=== PATIENT | male | born 1955 | race Caucasian/White ===

== ENCOUNTER → 2021-06-19 | Outpatient (CLI) | payer MEDICARE ==
[2021-06-19 16:59] LABS: Campylobacter Sp Not Detected (NOT DETECT)
[2021-06-19 17:00] LABS: Adenovirus F 40/41 Not Detected (NOT DETECT); Astrovirus Not Detected (NOT DETECT); Cryptosporidium Not Detected (NOT DETECT); Cyclospora Cayetanensis Not Detected (NOT DETECT); E. Coli O157 Not Detected (NOT DETECT); Entamoeba Histolytica Not Detected (NOT DETECT); Enteroaggregative E. coli-EAEC Not Detected (NOT DETECT); Enteropathogenic E. coli-EPEC Not Detected (NOT DETECT); Enterotoxigenic E. coli-ETEC Not Detected (NOT DETECT); Giardia Lamblia Not Detected (NOT DETECT); Norovirus GI/GII Not Detected (NOT DETECT); Plesiomonas Shigelloides Not Detected (NOT DETECT); Rotavirus A Not Detected (NOT DETECT); Salmonella Sp Not Detected (NOT DETECT); Sapovirus Not Detected (NOT DETECT); Shiga Toxin-prod E. coli-STEC Not Detected (NOT DETECT); Shigella/Enteroin E. coli-EIEC Not Detected (NOT DETECT); Vibrio Cholerae Not Detected (NOT DETECT); Vibrio Sp Not Detected (NOT DETECT); Yersinia Enterocolitica Not Detected (NOT DETECT)
== END | disposition home or self-care (01) ==
LOC: LAB 11:26 → LAB SHORT 11:26
PROVIDERS: Nurse Practitioner Family
DX: R00.0 Tachycardia, unspecified (principal); R03.1 Nonspecific low blood-pressure reading; R79.9 Abnormal finding of blood chemistry, unspecified; R19.7 Diarrhea, unspecified
CPT/HCPCS: 0097U

== ENCOUNTER → 2021-07-21 | Outpatient (CLI) | payer MEDICARE | LOC: LAB SHORT 07:29 → LAB 07:29 | DX: D48.5 Neoplasm of uncertain behavior of skin (principal); D22.4 Melanocytic nevi of scalp and neck | CPT/HCPCS: 88305 ==

== ENCOUNTER → 2022-05-25 | Outpatient (CLI) | payer MEDICARE | END | disposition home or self-care (01) | LOC: LAB 12:05 → PLD 12:05 → LAB SHORT 12:05 | DX: C44.329 Squamous cell carcinoma of skin of other parts of face (principal); L57.0 Actinic keratosis | CPT/HCPCS: 88305 ==

== ENCOUNTER → 2022-12-22 | Outpatient (CLI) | payer OTHER | END | disposition home or self-care (01) | LOC: LAB 12:07 → LAB SHORT 12:07 | DX: D48.5 Neoplasm of uncertain behavior of skin (principal) | CPT/HCPCS: 88305 ==

== ENCOUNTER → 2023-03-22 | Outpatient (CLI) | payer OTHER | LOC: PLD 13:14 → LAB SHORT 13:14 | DX: D48.5 Neoplasm of uncertain behavior of skin (principal) | CPT/HCPCS: 88305 ==

== ENCOUNTER 2024-05-21 13:12 | Inpatient (IN) | payer OTHER ==
[~2024-05-21] VITALS: Ht 175.3 cm; Wt 108.6 kg
[2024-05-21] VITALS (14 sets, daily range): BP systolic 111–194; BP diastolic 72–138
[2024-05-21 13:58] LABS: BASOPHILS PERCENT AUTO 1 % (0-2); EOSINOPHILS ABSOLUTE AUTO 0.13 K/mm3 (0.00-0.68); EOSINOPHILS PERCENT AUTO 1 % (0-6); Hematocrit 51.6 % (37.0-53.0); Hemoglobin 17.2 g/dL (13.5-17.5); IMMATURE GRAN ABSOLUTE AUTO 0.03 K/mm3 (0.00-0.10); IMMATURE GRAN PERCENT AUTO 0 % (0-1); LYMPHOCYTES ABSOLUTE AUTO 1.77 K/mm3 (0.84-5.20); LYMPHOCYTES PERCENT AUTO 17 % (21-46); MONOCYTES ABSOLUTE AUTO 0.75 K/mm3 (0.16-1.47); MONOCYTES PERCENT AUTO 7 % (4-13); Mean Corpuscular HGB 31.7 pg (26.0-34.0); Mean Corpuscular HGB Conc 33.3 g/dL (31.5-36.5); Mean Corpuscular Volume 95 fL (80-100); Mean Platelet Volume 11.7 fL (9.1-12.4); NEUTROPHILS PERCENT AUTO 73 % (41-73); Platelet Count 165 K/mm3 (150-400); RDW Coefficient Variation 13.8 % (11.7-14.2); RDW Standard Deviation 48.4 fL (35.1-46.3); Red Blood Cell Count 5.42 M/mm3 (4.30-5.90); White Blood Cell Count 10.48 K/mm3 (4.00-11.30)
[2024-05-21] MEDS ORDERED: Metoprolol Tartrate 1 MG/ML 5 ML VIAL IV ONE ×2 (14:10→15:10)
[2024-05-21 14:23] LABS: Albumin, Blood 3.7 g/dL (3.4-5.0); Albumin/Globulin Ratio 0.9 (0.8-1.8); Bilirubin, Total 1.1 mg/dL (0.1-1.0); Bun/Creatinine Ratio 18.1 (12.0-20.0); Calcium, Blood 9.2 mg/dL (8.5-10.1); Creatinine, Blood 1.27 mg/dL (0.60-1.20); Globulin, Blood 4.2 g/dL (2.2-4.0); Potassium, Blood 3.8 mmol/L (3.5-5.5); Total Protein, Blood 7.9 g/dL (6.4-8.2)
[2024-05-21] MEDS ORDERED: Diltiazem HCl 5 MG / ML 5ML Vial IV ONE ×2 (16:05→16:40)
[2024-05-21] MEDS ORDERED: dilTIAZem HCL 100 MG in NS 100 ML IV SCH (17:40)
[2024-05-21] MEDS ORDERED: Ondansetron HCl 2 MG / ML 2ML Vial IV PRN (18:35)
[2024-05-21] MEDS ORDERED: Acetaminophen 325 MG TABLET PO PRN (18:35)
[2024-05-21] MEDS ORDERED: Furosemide 10 MG / ML 2ML Vial IV ONE (19:00)
[2024-05-21] MEDS ORDERED: Metoprolol Tartrate 50 MG Tab PO SCH (19:00)
[2024-05-21] MEDS ORDERED: Potassium Chloride 20 MEQ TabCR PO ONE (19:00)
--- NOTE | 2024-05-21 20:24 | NUR ---
ADMISSION PATIENT ARRIVED TO PCU 18 AT 1999 VIA STRETCHER. PATIENT IS ALERT AND ORIENTED X4. ABLE TO SELF TRANSFER TO THE BED. PLACED IN HOSPITAL GOWN. UPON ADMIT PATIENT ON CARDIZEM DRIP AT 15 AND HEART RATE 140'S-160'S. PATIENT DENIES ANY CHEST PAIN, SHORTNESS OF BREATH, LIGHT HEADEDNESS, AND DIZZINESS. WILL CONTINUE TO MONITOR. CALL LIGHT WITHIN REACH.
[2024-05-22] VITALS (18 sets, daily range): BP systolic 103–138; BP diastolic 63–111
--- NOTE | 2024-05-22 06:34 | NUR ---
SHIFT SUMMARY PATIENT CONTINUES ON CARDIZEM DRIP AT 15, HEART RATE HAS TRENDED DOWN TO 110'S-120'S. PATIENT CONTINUES TO DENY ANY CHEST PAIN, SHORTNESS OF BREATH, AND DIZZINESS. ON ROOM AIR WITH SPO2 >90%. NO ACUTE ISSUES NOTED OVERNIGHT. WILL CONTINUE TO MONITOR. CALL LIGHT WITHIN REACH.
[2024-05-22] MEDS ORDERED: Lopressor 50 mg50 MG PO (07:26)
[2024-05-22] MEDS ORDERED: METO50ER PO (07:26)
[2024-05-22] MEDS ORDERED: XARELTO20 MG PO (07:27)
[2024-05-22] MEDS ORDERED: JARDIANCE10 MG PO (07:27)
[2024-05-22] MEDS ORDERED: FURO20 PO (07:30)
[2024-05-22] MEDS ORDERED: POTA10T PO (07:30)
[2024-05-22] MEDS ORDERED: ZOLP10 PO (07:30)
[2024-05-22] MEDS ORDERED: Insulin Human Lispro 100 Units/ML 3ML Syringe SC SCH (07:30)
[2024-05-22] MEDS ORDERED: HYDRA50 PO (07:31)
[2024-05-22] MEDS ORDERED: ALLO300 PO (07:38)
--- NOTE | 2024-05-22 07:41 | NUR ---
REVIEWED pt's home medications with him, based on medication claim hx from [facility] as well as pt's report. Unusual directions on Toprol XL and metoprolol tartrate, which the pt takes both. Pt's vital signs taken. Remains afib with RVR rate 115-130 bpm, asymptomatic at rest, reports ShOB with activity.
[2024-05-22 08:46] LABS: BASOPHILS ABSOLUTE AUTO 0.07 K/mm3 (0.00-0.23); BASOPHILS PERCENT AUTO 1 % (0-2); EOSINOPHILS PERCENT AUTO 1 % (0-6); Hematocrit 51.8 % (37.0-53.0); Hemoglobin 17.3 g/dL (13.5-17.5); IMMATURE GRAN ABSOLUTE AUTO 0.03 K/mm3 (0.00-0.10); IMMATURE GRAN PERCENT AUTO 0 % (0-1); LYMPHOCYTES ABSOLUTE AUTO 1.51 K/mm3 (0.84-5.20); LYMPHOCYTES PERCENT AUTO 12 % (21-46); MONOCYTES ABSOLUTE AUTO 0.89 K/mm3 (0.16-1.47); MONOCYTES PERCENT AUTO 7 % (4-13); Mean Corpuscular HGB Conc 33.4 g/dL (31.5-36.5); Mean Corpuscular Volume 96 fL (80-100); Mean Platelet Volume 11.7 fL (9.1-12.4); NEUTROPHILS ABSOLUTE AUTO 10.11 K/mm3 (1.96-9.15); NEUTROPHILS PERCENT AUTO 80 % (41-73); Platelet Count 154 K/mm3 (150-400); RDW Coefficient Variation 13.8 % (11.7-14.2); RDW Standard Deviation 49.2 fL (35.1-46.3); White Blood Cell Count 12.71 K/mm3 (4.00-11.30)
[2024-05-22] MEDS ORDERED: Rivaroxaban 10 MG Tab PO SCH (09:00)
[2024-05-22 09:03] LABS: Bun/Creatinine Ratio 18.5 (12.0-20.0); Creatinine, Blood 1.08 mg/dL (0.60-1.20); Magnesium, Blood 1.7 mg/dL (1.6-2.4); Potassium, Blood 4.3 mmol/L (3.5-5.5)
--- NOTE | 2024-05-22 09:40 | NUR ---
Afib 155-180, denies chest discomfort/ShOB/pain. Dr. Varela here rounding. Expect cardiology consultation.
--- NOTE | 2024-05-22 12:26 | NUR ---
Cardizem gtt stopped, amiodarone bolus given and amiodarone gtt started. Pt was also given tylenol for c/o headache 02/21. He is sitting up in bed, eating lunch. Vital signs are improved.
[2024-05-22] MEDS ORDERED: Metoprolol Succinate 50 MG TABCR PO SCH (15:20)
--- NOTE | 2024-05-22 15:47 | NUR ---
Call to Dr. Varela at 1520 for atrial fib rate sustaining 130-160 bpm. Pt is asymptomatic, systolic blood pressure 123. Denies any dyspnea, pain, shortness of breath at rest and with use of urinal. New order received to give Toprol XL starting now. Amiodarone gtt was started at approx noon, but heart rate has not responded to it. Monitoring closely.
--- NOTE | 2024-05-22 18:03 | NUR ---
Call to Dr. Varela, updated her on pt's slightly improved heart rate, but still afib with RVR 120-130s primarily. No new orders. Continue amiodarone gtt as ordered; pt got 200 mg Toprol XL already this afternoon. He remains asymptomatic.
[2024-05-22] MEDS ORDERED: Zolpidem Tartrate 10 MG Tab PO PRN (20:00)
[2024-05-23 03:57] LABS: BASOPHILS ABSOLUTE AUTO 0.07 K/mm3 (0.00-0.23); BASOPHILS PERCENT AUTO 1 % (0-2); EOSINOPHILS ABSOLUTE AUTO 0.23 K/mm3 (0.00-0.68); EOSINOPHILS PERCENT AUTO 2 % (0-6); Hematocrit 49.4 % (37.0-53.0); Hemoglobin 16.7 g/dL (13.5-17.5); IMMATURE GRAN ABSOLUTE AUTO 0.03 K/mm3 (0.00-0.10); IMMATURE GRAN PERCENT AUTO 0 % (0-1); LYMPHOCYTES ABSOLUTE AUTO 1.92 K/mm3 (0.84-5.20); LYMPHOCYTES PERCENT AUTO 17 % (21-46); MONOCYTES PERCENT AUTO 9 % (4-13); Mean Corpuscular HGB 32.3 pg (26.0-34.0); Mean Corpuscular HGB Conc 33.8 g/dL (31.5-36.5); Mean Corpuscular Volume 96 fL (80-100); Mean Platelet Volume 11.5 fL (9.1-12.4); NEUTROPHILS ABSOLUTE AUTO 8.29 K/mm3 (1.96-9.15); NEUTROPHILS PERCENT AUTO 72 % (41-73); Platelet Count 171 K/mm3 (150-400); RDW Coefficient Variation 13.7 % (11.7-14.2); RDW Standard Deviation 48.2 fL (35.1-46.3); Red Blood Cell Count 5.17 M/mm3 (4.30-5.90); White Blood Cell Count 11.54 K/mm3 (4.00-11.30)
[2024-05-23 04:20] LABS: Bun/Creatinine Ratio 18.6 (12.0-20.0); Calcium, Blood 9.1 mg/dL (8.5-10.1); Creatinine, Blood 1.13 mg/dL (0.60-1.20); Potassium, Blood 3.8 mmol/L (3.5-5.5)
[2024-05-23 04:25] VITALS: BP 126/105
--- NOTE | 2024-05-23 06:37 | NUR ---
SHIFT SUMMARY PATIENT ALERT AND ORIENTED X4. HAD NO COMPLAINTS OF PAIN OR SHORTNESS OF BREATH. ON ROOM AIR WITH SPO2 >90%. CONTINUES ON AMIODARONE DRIP WITH HEART RATE 120'S AT REST/SLEEPING, TOUCHED THE 170'S WITH ACTIVITY. PATIENT ASYMPTOMATIC. WILL CONTINUE TO MONITOR. CALL LIGHT WITHIN REACH.
[2024-05-23 07:33] VITALS: BP 121/95
[2024-05-23] MEDS ORDERED: Furosemide 10 MG/ML 4ML Vial IV SCH (09:00)
[2024-05-23] MEDS ORDERED: Metoprolol Succinate 50 MG TABCR PO SCH (09:00)
--- NOTE | 2024-05-23 09:28 | NUR ---
AM NOTES; PT ALERT AND ORIETNTED X4, PT ABLE TO AMBULATE TO THE BATHROOM WITH MILD SOB, HRR STILL GOING UP TO THE 160'S, SBP 120'S, SATS ABOVE 95% ON RA, AFEBRILE, DENIES CHEST PAIN/PRESSURE. DR SIDDIQI CONSULTED SIGNALS INTELLIGENCE ANALYST AWAITING FOR DR OLMOS TO ROUNDS PLAN ON DOING CARDIOVERSION. PT HAD BREAKFAST, KPT NPO FROM NOW ON. AMIO GTT STILL INFUSING. PT HAS BEEN PLEASANT AND COOPERATIVE WITH CARES, ABLE TO MAKE NEEDS KNOWN. WILL CONTINUE TO MONITOR
[2024-05-23 11:13] VITALS: BP 124/104
--- NOTE | 2024-05-23 11:20 | NUR ---
UPDATE; DR OLMOS CAME BY PLAN TO DO CARDIOVERSION IN AM, TO KEEP PT KNPO AFTER MIDNIGHT. TO CONTINUE AMIO GTT PER ORDER. PT NOW UP SITTING IN THE RECLINER FOR LUNCH HRR STILL 130-160'S. PT ASYMPTOMATIC. WILL CONTINUE TO MONITOR
[2024-05-23 16:15] VITALS: BP 112/73
[2024-05-23] MEDS ORDERED: Insulin Human Lispro 100 Units/ML 3ML Syringe SC SCH (18:00)
--- NOTE | 2024-05-23 18:13 | NUR ---
PT SUMMARY; NO OTHER ISSUES ENCOUNTERED FOR THE SHIFT. VITALS REMAINED THE SAME HRR STILL 130-150'S, PLAN FOR CARDIOVERSION IN AM PT TO BE TAKEN TO WATER POLLUTION SPECIALIST AT 0630A. NPO AFTER MIDNIGHT. PT HAS BEEN PLEASANT AND COOPERATIVE FOR THE SHIFT, AMBULATES TO THE BATHROOM WAS UP IN THE RECLINER FOR MEALS. WILL REPORT TO ONCOMING SHIFT
[2024-05-23 20:49] VITALS: BP 136/109
[2024-05-23 23:41] VITALS: BP 123/84
[2024-05-24] VITALS (8 sets, daily range): BP systolic 107–153; BP diastolic 89–102
--- NOTE | 2024-05-24 06:40 | NUR ---
SHIFT SUMMARY PATIENT ALERT AND ORINETED X4. HAD NO COMPLAINTS OF PAIN OR SHORTNESS OF BREATH. ON ROOM AIR WITH SPO2 >90% CONTINUES ON AMIODARONE DRIP, AFIB IN THE 130'S-150'S ON TELE. PLAN FOR WONG AND CARDIOVERSION THIS MORNING. BLOOD PRESSURE STABLE. NO ACUTE ISSUES NOTED OVERNIGHT. WILL CONTINUE TO MONITOR. CALL LIGHT WITHIN REACH.
[2024-05-24] MEDS ORDERED: NS 1,000 ML IV ONE (06:43)
[2024-05-24] MEDS ORDERED: propofoL 20 ML IV ONE (06:53)
--- NOTE | 2024-05-24 07:28 | NUR ---
CARE ASSUMPTION THIS RN ASSUMING CARE OF PT. PT ALREADY GONE TO HEART CENTER FOR CARDIOVERSION PRIOR TO DAY SHIFT ARRIVAL. PT SPOUSE WAITING IN PT RM, INTRODUCTION MADE TO PT SPOUSE. WILL AWAIT PT RETURN TO UNIT.
--- NOTE | 2024-05-24 07:50 | NUR ---
PT AWAKE AND CONVERSING APPROPRIATELY; DENIES PAIN POST PROCEDURE, VSS. REPORT CALLED TO MARY ALICE HERNÁNDEZ, ALL QUESTIONS ANSWERED. PT RETURNED TO ROOM VIA W/C, CONDITION STABLE.
--- NOTE | 2024-05-24 08:30 | NUR ---
RETURN FROM PROCEDURE PT BROUGHT BACK TO PCU-18 BY WHEELCHAIR FROM HEART CENTER @ APPROX 0750. PT A&O X4, ABLE TO STAND & TRANSFER TO BED W/ SBA. VSS. SPO2 > 92% ON RA. MONITOR SHOWING SR W/ PACs, HR 80s. AMIO GTT STILL INFUSING UPON RETURN. THEN W/ ORDER TO DC AMIO GTT AND START PO AMIO. PT REFUSING LASIX THIS AM, STATING, "I'M UP EVERY 20 MINUTES PEEING. I JUST NEED A BREAK." URINAL OFFERED AT BEDSIDE & PT REMINDED OF PURPOSE OF LASIX. PT STILL REFUSING, STATING "I NEED A DAY OFF. I'LL TAKE IT WHEN I GET HOME IF I GO HOME LATER TODAY." PT ALSO ENCOURAGING PT TO TAKE MEDICATION BUT PT POLITELY DECLINING.
[2024-05-24] MEDS ORDERED: Amiodarone HCl 200 MG Tab PO SCH (09:00)
[2024-05-24] MEDS ORDERED: Metoprolol Tartrate 1 MG/ML 5 ML VIAL IV PRN (12:00)
[2024-05-24] MEDS ORDERED: Metoprolol Tartrate 1 MG/ML 5 ML VIAL IV ONE (12:00)
--- NOTE | 2024-05-24 12:00 | NUR ---
CONVERT FROM SR TO AFIB AT 1142 PT CONVERTED BACK TO AFIB, HR 110s-130s W/ BRIEF INCREASE TO 150s. PT DENYING SYMPTOMS OR AWARE OF ANY CHANGES. VSS. CALL TO MD NEERU Cuellar/ ORDER FOR IV LOPRESSOR & TO NOTIFY MD OLMOS. CALL TO MD AMARILIS Cuellar/ ORDERS FOR IV DIGOXIN X3 DOSES 6 HRS APART & START PO DIGOXIN DAILY STARTING 7/12 AM (SEE ORDERS).
[2024-05-24] MEDS ORDERED: Digoxin 0.25 MG/ML 2ML Amp IV SCH (12:10)
--- NOTE | 2024-05-24 17:36 | NUR ---
END OF SHIFT PT A&O X4. VSS. SPO2 > 92% ON RA. PT IN SR UPON CARE ASSUMPTION AFTER CARDIOVERSION THIS AM, THEN CONVERTED BACK INTO AFIB @ APPROX 1140 THIS AM, SEE PREVIOUS NOTE. PT REMAINS AFIB, HR 110s-140s. PT DENIES FEELING ANY CHANGE W/ CONVERTING BACK INTO AFIB.
--- NOTE | 2024-05-24 19:35 | NUR ---
ASSUMED CARE OF PATIENT. PATIENT RESTING BED AT THIS TIME. PATIETN ON TELE MOPNITOIR HR 110S-130S. NO COMPLAINTS OF LIGHT HEADEDNESS OR SOB. PATIENT ON RA. INDEPENDENT IN THE ROOM.
[2024-05-25 04:07] VITALS: BP 119/102
[2024-05-25 07:20] VITALS: BP 132/94
[2024-05-25] MEDS ORDERED: Digoxin 0.25 MG Tab PO SCH (09:00)
[2024-05-25] MEDS ORDERED: AMIODARONE HCL400 M2 PO (10:17)
[2024-05-25] MEDS ORDERED: DIGOX250 MCG PO (10:17)
--- NOTE | 2024-05-25 11:41 | NUR ---
DISCHARGE HOME PT A&O X4. VSS. SPO2 > 92% ON RA. MONITOR SHOWING AFIB, HR 100-130s. MD OLMOS W/ CHHAYA FOR PT DISCHARGE & REFERRING PT FOR ABLATION. MD SIDDIQI W/ ORDER FOR DISCHARGE. DISCHARGE INSTRUCTIONS REVIEWED W/ PT. PIVs REMOVED. PT TAKEN OUT BY WHEELCHAIR W/ BELONGINGS @ 7053.
== END 2024-05-25 11:40 | disposition home or self-care (01) | DRG 308 ==
LOC: ER 13:12 → PCU 13:13
PROVIDERS: Family Medicine; Student in an Organized Health Care Education/Training Program; ADMIT Internal Medicine
PROC: 5A2204Z Restoration of Cardiac Rhythm, Single (ICD-10-PCS; principal; 2024-05-24)
DX: I48.19 Other persistent atrial fibrillation (principal); I50.33 Acute on chronic diastolic (congestive) heart failure; E78.5 Hyperlipidemia, unspecified; E11.9 Type 2 diabetes mellitus without complications; D72.829 Elevated white blood cell count, unspecified; I95.9 Hypotension, unspecified; I49.1 Atrial premature depolarization; I11.0 Hypertensive heart disease with heart failure; M10.9 Gout, unspecified; Z79.899 Other long term (current) drug therapy; Z79.01 Long term (current) use of anticoagulants
CPT/HCPCS: 36415; 71046; 80048; 80053; 82947; 83735; 83880; 84443; 84484; 85025; 92960; 93005; 93010; 96365; 96366; 96367; 96374; 96375; 96376; 99285-25; A9270; C8929; G0378; J0282; J1160; J1940; J2704; J7030; J7060; Q9957

== ENCOUNTER 2025-10-04 10:39 | Day surgery (SDC) | payer OTHER ==
[~2025-10-04] VITALS: Ht 175.3 cm; Wt 104.0 kg
[~2025-10-04 10:39] MED LIST: ALLO300 PO; AMIODARONE HCL400 M2 PO; Bupivacaine 0.5% W/EPI 1:200000 SDV 30 ML Vial ONE; DIGOX250 MCG PO; FURO20 PO; HYDRA50 PO; JARDIANCE10 MG PO; Lidocaine HCl 2% 10 ML SDA ONE; Lopressor 50 mg50 MG PO; METO50ER PO; POTA10T PO; XARELTO20 MG PO; ZOLP10 PO
[2025-10-04] MEDS ORDERED: CeFAZolin Sodium 2,000 MG VIAL ONE (10:55)
[2025-10-04] MEDS ORDERED: Insulin Regular 100 UNIT/ML 10ML Vial ONE (11:34)
[2025-10-04 11:46] VITALS: BP 134/76
--- NOTE | 2025-10-04 12:28 | NUR ---
10/04/25 1228 NAVEEN REZA PT CHEM BS WAS 335 @1143 SURGEON NOTIFIED AND ORDERED REGULAR INSULIN 6 UNITS IV NOW AND RECHECK BLOOD SUGAR AT 1200. MUST BE UNDER 200 TO PROCEDE W/ PROCEDURE TODAY. 1207 CHEM BG 332 BOTH ANESTH. AND SURGEON CX PROCEDURE. PT NOTIFIED TO CONTACT HIS PCP ABOUT DM CONTROL AND THEN CALL SURGEONS OFFICE TO RESCHEDULE AFTER DM IS CONTROLLED
== END 2025-10-04 12:24 | disposition home or self-care (01) ==
LOC: ORSCSDS 10:39
DX: M20.5X1 Other deformities of toe(s) (acquired), right foot (principal); Z53.9 Procedure and treatment not carried out, unspecified reason; E11.9 Type 2 diabetes mellitus without complications
CPT/HCPCS: 82947; J0690; J1815; J2003; J7120